=== PATIENT | male | born 1995 | race Caucasian/White ===

== ENCOUNTER 2017-08-14 21:51 | Emergency (ER) | payer MEDICAID ==
--- NOTE | 2017-08-14 22:39 | XRAY Preliminary Report ---
Exam: XR ANKLE 3 VIEW LT IMPRESSION: No acute bony abnormalities. No evidence of hardware-related complication. [facility] SITE ID: [id number]
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
[2017-08-14 23:06] VITALS: BP 110/58
--- NOTE | 2017-08-14 23:15 | XRAY Report ---
EXAM: LEFT ANKLE RADIOGRAPHY EXAM DATE: 08/14/2017 10:27 PM. CLINICAL HISTORY: Prior surgery, ankle pain. Sudden pain along the lateral ankle. COMPARISON: None. TECHNIQUE: 3 views. FINDINGS: Bones: Distal fibular side plate and screw fixation as well as placement of 2 threaded medial malleol ar screws. No acute displaced fracture or suspicious bony lesion. Joints: Ankle mortise appears intact on these nonstressed images. Soft Tissues: Normal. No soft tissue swelling. IMPRESSION: No acute bony abnormality. No evidence of hardware-related complication. [facility] Referring Provider Line: [phone] SITE ID: [id number]
== END 2017-08-14 23:05 | disposition home or self-care (01) ==
LOC: ED 21:51
DX: M25.572 Pain in left ankle and joints of left foot (principal)
CPT/HCPCS: 99282; 99283

== ENCOUNTER 2017-08-24 01:30 | Emergency (ER) | payer MEDICAID ==
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
[2017-08-24 03:38] VITALS: BP 119/76
== END 2017-08-24 03:38 | disposition home or self-care (01) ==
LOC: ED 01:30
DX: S99.912A Unspecified injury of left ankle, initial encounter (principal); X58.XXXA Exposure to other specified factors, initial encounter
CPT/HCPCS: 99282; 99283

== ENCOUNTER 2017-10-06 14:46 | Outpatient (CLI) | payer MEDICAID | END 2017-10-06 14:47 | disposition critical access hospital (66) | LOC: EMS 14:46 | PROVIDERS: ATTEND Surgery | DX: S81.842A Puncture wound with foreign body, left lower leg, initial encounter (principal); W34.00XA Accidental discharge from unspecified firearms or gun, initial encounter; Y92.410 Unspecified street and highway as the place of occurrence of the external cause | CPT/HCPCS: A0425; A0429 ==

== ENCOUNTER 2017-10-06 15:13 | Day surgery (SDC) | payer MEDICAID ==
[2017-10-06] MEDS ORDERED: SODIUM CHLORIDE 0.9% 1,000 ML IV ONE ×2 (15:21→17:02)
[2017-10-06] MEDS ORDERED: ONDANSETRON 4 MG/2 ML VIAL IVP STA (15:21)
[2017-10-06] MEDS ORDERED: MORPHINE 10 MG/ML VIAL IVP STA ×2 (15:21→16:10)
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
[2017-10-06 15:42] LABS: BASOPHILS % (AUTO) 0.6 %; EOSINOPHILS # (AUTO) 0.1 10^3/uL (0.0-0.7); EOSINOPHILS % (AUTO) 1.4 %; HGB - HEMOGLOBIN 14.8 g/dL (14.0-18.0); LYMPHOCYTES # (AUTO) 2.6 10^3/uL (1.5-3.5); LYMPHOCYTES % (AUTO) 35.9 %; MEAN CORPUSCULAR HEMOGLOBIN 30.3 pg (27.0-31.0); MEAN CORPUSCULAR HGB CONC 34.2 g/dL (32.0-36.0); MEAN CORPUSCULAR VOLUME 88.7 fL (80.0-94.0); MEAN PLATELET VOLUME 7.3 fL (7.4-11.4); MONOCYTES # (AUTO) 0.8 10^3/uL (0.0-1.0); MONOCYTES % (AUTO) 10.8 %; NEUTROPHILS # (AUTO) 3.7 10^3/uL (1.5-6.6); NEUTROPHILS % (AUTO) 51.3 %; PLT - PLATELET COUNT 253 10^3/uL (130-450); RED BLOOD COUNT 4.89 10^6/uL (4.70-6.10); WHITE BLOOD COUNT 7.2 x10^3/uL (4.8-10.8)
[2017-10-06 15:48] LABS: ALBUMIN 4.5 g/dL (3.2-5.5); ALBUMIN/GLOBULIN RATIO 1.4 (1.0-2.2); ALKALINE PHOSPHATASE 80 IU/L (42-121); ALT ALANINE AMINOTRANSFERASE 16 IU/L (10-60); AST ASPARTATE AMINOTRANSFERASE 18 IU/L (10-42); BILIRUBIN,TOTAL 0.8 mg/dL (0.2-1.0); BUN - BLOOD UREA NITROGEN 14 mg/dL (6-20); CALCIUM 9.2 mg/dL (8.5-10.3); CARBON DIOXIDE - CO2 26 mmol/L (21-32); CHLORIDE 100 mmol/L (101-111); CREATININE 0.9 mg/dL (0.6-1.2); GFR - MDRD 107 (>89); GLUCOSE 110 mg/dL (70-100); LIPASE 17 U/L (22-51); SODIUM 136 mmol/L (135-145); TOTAL PROTEIN 7.8 g/dL (6.7-8.2)
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
[2017-10-06] MEDS ORDERED: ceFAZolin 1 GM in SODIUM CHLORIDE 0.9% MINIBAG 100 ML IV ONE (16:10)
[2017-10-06] MEDS ORDERED: LORazepam 2 MG/ML VIAL IVP STA (16:14)
[2017-10-06] MEDS ORDERED: MIDAZOLAM 2 MG/2 ML VIAL IVP ONE (17:45)
[2017-10-06] MEDS ORDERED: ONDANSETRON 4 MG/2 ML VIAL IVP ONE (17:45)
[2017-10-06] MEDS ORDERED: LACTATED RINGERS 1,000 ML IV ONE (17:45)
[2017-10-06] MEDS ORDERED: LIDOCAINE-MPF 2% 5 ML VIAL IM ONE (17:45)
[2017-10-06] MEDS ORDERED: KETOROLAC 30 MG/ML VIAL IVP ONE (17:45)
[2017-10-06] MEDS ORDERED: fentaNYL 100 MCG/2 ML VIAL IVP ONE (17:45)
[2017-10-06] MEDS ORDERED: DEXAMETHASONE 4 MG/ML VIAL IVP ONE (17:45)
[2017-10-06] MEDS ORDERED: diphenhydrAMINE INJ 50 MG/ML VIAL IVP ONE (17:45)
[2017-10-06] MEDS ORDERED: PROPOFOL 200 MG/20 ML VIAL IVP ONE (17:45)
[2017-10-06] MEDS ORDERED: MEPERIDINE 50 MG/ML VIAL ONE (18:20)
[2017-10-06] MEDS ORDERED: SODIUM CHLORIDE FLUSH 0.9% 10 ML SYRINGE ONE (18:21)
[2017-10-06 19:07] VITALS: BP 130/68
[2017-10-06] MEDS ORDERED: HYDROcod/ACETAM 5/325 MG TABLET PO PRN (19:34)
[2017-10-06] MEDS ORDERED: MORPHINE 2 MG/ML SYRINGE IVP PRN (19:35)
[2017-10-06] MEDS ORDERED: ONDANSETRON 4 MG/2 ML VIAL IVP PRN (19:38)
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
[2017-10-06] MEDS ORDERED: LACTATED RINGERS 1,000 ML IV SCH (21:05)
[2017-10-07] MEDS ORDERED: CLINDAMYCIN IV 600 MG/50 ML IV SCH
== END 2017-10-06 23:50 | disposition left against medical advice (07) ==
LOC: EDUNIT# → ED 15:13 → SDS 16:00 → MS2 18:34 → SDS 23:50
PROVIDERS: ATTEND Orthopaedic Surgery
PROC: 0QBH0ZZ Excision of Left Tibia, Open Approach (ICD-10-PCS; principal; 2017-10-06 16:15)
DX: S82.155A Nondisplaced fracture of left tibial tuberosity, initial encounter for closed fracture (principal); W32.0XXA Accidental handgun discharge, initial encounter
CPT/HCPCS: 11044; 36415; 73590; 80053; 80320; 83690; 85025; 96361; 96374; 99283; 99284; J1200; J2060; J2175; J7120; 99282